=== PATIENT | male | born 1940 | race Caucasian/White ===

== ENCOUNTER 2020-04-05 14:26 | Emergency (ER) | payer MEDICARE, SELFPAY ==
[2020-04-05 14:27] VITALS: BP 151/109; PULSE 82; RESP 16; TEMP 36.8; O2SAT 98; BMI 29.3
[2020-04-05 14:33] VITALS: BP 151/75; PULSE 77; RESP 16; TEMP 36.8; O2SAT 100
--- NOTE | 2020-04-05 15:15 | ED.DCSUM_ITS ---
History of Present Illness Chief Complaint: Dizziness Informant: Patient Narrative: 79-year-old male presents for evaluation of dizziness and diaphoresis. He states this happened twice this morning [place] . They were trying to pack up the camper when this happened. He states he sat down and closes eyes and his dizziness improved. He also states that sipping water improved his dizziness he described as more of lightheadedness. He states his is very sickly and is unable to help. He states he did the majority of the work. He started to become dizzy and diaphoretic again and called EMS. His family went to [place] his and pack up his camper. He states his symptoms seem to be resolved currently. He states he has had this in the past and was told it was from panic disorder. He denies any chest pain or shortness of breath. He has a history of A. fib and he has a pacemaker that was just interrogated last week and working normally. He is anticoagulated. Past Medical History - Allergies and Home Meds Allergies/Adverse Reactions: Allergies indomethacin [From Indocin] Adverse Reaction (Verified 04/05/20 14:34) Upset Stomach Primary Care Physician: [facility] Doctor,Out of [NON-STAFF] - Prior records reviewed: Yes Past Medical History: - - Atrial fibrillation Surgical History: noncontributory Lives: Spouse/ Significant Other Smoking Status: Never smoker Alcohol: None Drugs: None Review of Systems General: Reports: Sweats, - - Lightheadedness. Denies: Chills, Fever Eyes: Denies: Visual changes - bilaterally, Diplopia ENT: Denies: Rhinorrhea, Sore throat Cardiovascular: Denies: Chest pain, Palpitations Respiratory: Denies: Dyspnea, Cough, Dyspnea on exertion Gastrointestinal: Denies: Abdominal pain, Nausea, Vomiting, Diarrhea, Melena, Hematochezia Genitourinary: Denies: Dysuria, Hematuria, Frequency Musculoskeletal: Denies: Back pain, Extremity Pain Skin: Denies: Rash, Wounds Neurological: Denies: Headache, Weakness, Numbness Physical Exam Vital Signs/Narrative: Vital Signs Temp Pulse Resp BP Pulse Ox 04/05/20 14:33 98.2 F 77 16 151/75 H 100 04/05/20 14:27 98.2 F 82 16 151/109 H 98 Inital Vital Signs reviewed: Yes General: Well nourished, No Acute Distress Head: Normocephalic, Atraumatic Eyes: Perrl, EOMI. Negative for: Pale conjunctiva ENT: Dry mucous membranes Cardiovascular: Regular rate, Regular rhythm Respiratory: No distress, CTA bilaterally Extremities: Nontender, No edema Skin: Normal color, No rash. Negative for: Cyanosis, Diaphoresis Neurological: Alert, Oriented x3, Cranial nerves II-XII grossly intact Psychological: Normal affect, Normal Mood Diagnostic/Tx/Re-eval Laboratory Data 04/05/20 04/05/20 14:41 14:41 WBC 13.3 H RBC 5.20 Hgb 14.7 Hct 47.7 MCV 91.7 MCH 28.3 MCHC 30.8 L RDW Std Deviation 48.2 H RDW Coeff of Neema 14.3 Plt Count 264 MPV 9.4 Immature Gran % (Auto) 0.500 Neut % (Auto) 81.1 H Lymph % (Auto) 9.8 L [place] % (Auto) 8.2 Eos % (Auto) 0.2 Baso % (Auto) 0.2 Absolute Neuts (auto) 10.8 H Absolute Lymphs (auto) 1.30 Nucleated RBC % 0 Sodium 140 Potassium 3.7 Chloride 108 H Carbon Dioxide 25.0 Anion Gap 7 BUN 15 Creatinine 1.06 Estim Creat Clear Calc 58.21 Est GFR (MDRD) Af Amer 86 Est GFR (MDRD) Non-Af 71 BUN/Creatinine Ratio 14.2 Glucose 119 H Calcium 8.9 Troponin I < 0.015 - Medical Decision Making Patient presented for dizziness which is now resolved. He refused EKG and chest x-ray but did allow blood work to be drawn. His initial troponin was negative. His lab work was otherwise unremarkable. His vital signs were stable. Given I do not know the source of his dizziness I did recommend to them that we check an EKG and a chest x-ray although he declined. He stated that I just want to get out of here because I do not want to get coronavirus. I did sign him out AMA. Stated he could return at any time if his symptoms worsen. He acknowledged understanding. Impression: 1. Dizziness ED Disposition - Plan for ED Patient: Disposition: Against Medical Advice Instructions: ED Dizziness [facility] Referrals: [facility] Doctor,Out of [NON-STAFF] -
[2020-04-05 15:26] VITALS: PULSE 84; RESP 19; O2SAT 97; O2SAT 98
[2020-04-05 15:32] LABS: Absolute Neutrophil Count 10.8 X10^3/uL (2.0-7.7); Basophil# 0.03 X10^3/uL; Basophil% 0.2 % (0-1); Eosinophil# 0.03 X10^3/uL; Eosinophils% 0.2 % (0-5); Hematocrit 47.7 % (40-54); Hemoglobin 14.7 g/dL (13.0-16.5); Lymphocyte % 9.8 % (19-41); Mean Corp Hgb Conc 30.8 g/dL (32-36); Mean Corpuscular Hgb 28.3 pg (27.0-32.0); Mean Corpuscular Volume 91.7 fL (80-94); Mean Platelet Vol. 9.4 fl (6.2-12.0); Monocyte# 1.09 X10^3/uL; Monocyte% 8.2 % (0-10); NRBC Flagged by Analyzer 0 % (0-5); Neutrophil # 10.81 X10^3/uL (2.7-7.7); Neutrophil % 81.1 % (47-70); Platelet Count 264 K/mm3 (150-450); RBC Distribution Width CV 14.3 % (11.6-14.6); RBC Distribution Width SD 48.2 fl (35.1-43.9); White Blood Count 13.3 K/mm3 (4.4-11.0)
[2020-04-05 15:39] LABS: Anion Gap 7 (5-15); BUN 15 mg/dL (7-18); BUN/Creat Ratio 14.2 RATIO (10-20); Calcium,Total 8.9 mg/dL (8.5-10.1); Chloride 108 mmol/L (98-107); Creatinine, Serum 1.06 mg/dL (0.70-1.30); EST Glomerular Filtration Rate 71 mL/min (>60); Est Glom Filt Rate - Afr Amer 86 mL/min (>60); Estimated Creatinine Clearance 58.21 ml/min; Glucose 119 mg/dL (74-106); Potassium 3.7 mmol/L (3.5-5.1); Sodium Level 140 mmol/L (136-145)
[2020-04-05 16:24] VITALS: BP 155/82; PULSE 64; RESP 16
== END 2020-04-05 17:22 | disposition left against medical advice (07) ==
PROVIDERS: Emergency Provider Student in an Organized Health Care Education/Training Program
DX: R42 Dizziness and giddiness (principal); I48.91 Unspecified atrial fibrillation; Z95.0 Presence of cardiac pacemaker
CPT/HCPCS: 80048; 84484; 85025; 99285; A4216